=== PATIENT | male | born 1970 | race Caucasian/White ===

== ENCOUNTER 2021-07-24 13:55 | Emergency (ER) | payer SELFPAY ==
[2021-07-24 14:11] VITALS: BP 156/92; PULSE 55; TEMP 99.1; BMI 27.4
[2021-07-24] MEDS ORDERED: ACETAMINOPHEN 1000 MG/100 ML BAG IVPB ONE (15:03)
[2021-07-24] MEDS ORDERED: SODIUM CHLORIDE 1,000 ML IV STA ×2 (15:03→17:45)
[2021-07-24] MEDS ORDERED: METOCLOPRAMIDE HCL INJECTION 10 MG/2 ML VIAL IVPB ONE (15:03)
[2021-07-24] MEDS ORDERED: METOCLOPRAMIDE HCL INJECTION 10 MG/2 ML VIAL ONE (16:23)
[2021-07-24] MEDS ORDERED: ACETAMINOPHEN INJECTION 100 ML IVPB ONE (16:24)
[2021-07-24 16:54] LABS: BASO % 0.3 % (0-2.0); EOS % 0.1 % (0-4.5); HEMATOCRIT 44.6 % (35.4-49); HEMOGLOBIN 14.5 GM/dL (11.7-16.9); LYMPH % 10.8 % (8-40); MCH 27.8 pg (25.7-33.7); MCHC 32.5 g/dl (32.0-35.9); MEAN CELL VOLUME 85.3 fl (80-96); MEAN PLT VOLUME 9.6 fl (7.5-11.1); MONO % 3.3 % (3.8-10.2); NEUT % 85.5 % (42.8-82.8); PLATELET COUNT 230 10^3/uL (134-434); RBC 5.23 M/mm3 (4.00-5.60); RDW 13.8 % (11.9-15.9)
[2021-07-24 17:22] LABS: ALBUMIN 4.1 g/dl (3.4-5.0); BLOOD UREA NITROGEN 15.9 mg/dL (7-18); CALCIUM 9.1 mg/dL (8.5-10.1)
[2021-07-24 17:25] LABS: CREATININE 0.8 mg/dL (0.55-1.3)
[2021-07-24 17:27] LABS: BILIRUBIN,TOTAL 0.4 mg/dL (0.2-1); TOT PROT 7.8 g/dl (6.4-8.2)
== END 2021-07-24 20:31 | disposition home or self-care (01) ==
LOC: JER 13:55
PROC: 3E033GC Introduction of Other Therapeutic Substance into Peripheral Vein, Percutaneous Approach (ICD-10-PCS; principal; 2021-07-24)
DX: K52.9 Noninfective gastroenteritis and colitis, unspecified (principal)
CPT/HCPCS: 36415; 80053; 83690; 85025; 93005; 93010; 99284-25

== ENCOUNTER 2023-05-02 22:20 | Emergency (ER) | payer OTHER ==
[2023-05-02 22:26] VITALS: BMI 25.8
[2023-05-03] MEDS ORDERED: ACETAMINOPHEN 500 MG TABLET (FP) PO ONE (00:37)
[2023-05-03] MEDS ORDERED: ACETAMINOPHEN 325 MG TABLET (FP) ONE (00:40)
[2023-05-03 00:58] VITALS: BP 144/90; PULSE 73; RESP 16; TEMP 98.7
[2023-05-03 00:59] LABS: BASO % 1.1 % (0-2.0); EOS % 2.8 % (0-4.5); HEMATOCRIT 43.2 % (35.4-49); HEMOGLOBIN 14.2 GM/dL (11.7-16.9); LYMPH % 23.9 % (8-40); MCH 28.2 pg (25.7-33.7); MEAN CELL VOLUME 85.6 fl (80-96); MEAN PLT VOLUME 9.1 fl (7.5-11.1); MONO % 8.5 % (3.8-10.2); NEUT % 63.7 % (42.8-82.8); PLATELET COUNT 248 10^3/uL (134-434); RBC 5.04 M/mm3 (4.00-5.60); RDW 13.8 % (11.9-15.9); WHITE BLOOD COUNT 9.6 K/mm3 (4.0-10.0)
[2023-05-03 01:16] LABS: POTASSIUM 4.1 mmol/L (3.5-5.1)
[2023-05-03 01:17] LABS: CALCIUM 9.1 mg/dL (8.5-10.1)
[2023-05-03 01:18] LABS: ALBUMIN 3.6 g/dl (3.4-5.0); BLOOD UREA NITROGEN 15.5 mg/dL (7-18)
[2023-05-03 01:21] LABS: CREATININE 1.4 mg/dL (0.55-1.3)
[2023-05-03 01:23] LABS: BILIRUBIN,TOTAL 0.4 mg/dL (0.2-1); TOT PROT 7.3 g/dl (6.4-8.2)
== END 2023-05-03 01:52 | disposition home or self-care (01) ==
LOC: JER 22:20 → JERFT 22:20 → JER 05-03 01:52
DX: R05.9 Cough, unspecified (principal); R07.89 Other chest pain; K42.9 Umbilical hernia without obstruction or gangrene; Z20.822 Contact with and (suspected) exposure to COVID-19
CPT/HCPCS: 0241U-QW; 36415; 71046-TC-FY; 80053; 84484; 85025; 93005; 93010; 99285-25

== ENCOUNTER 2023-07-17 12:31 | Inpatient (IN) | payer OTHER ==
[2023-07-17 12:42] VITALS: BMI 31.6
[2023-07-17] MEDS ORDERED: morphine SULFATE 4 MG/ML VIAL ONE (14:12)
[2023-07-17] MEDS ORDERED: ONDANSETRON 4 MG/2 ML VIAL ONE (14:12)
[2023-07-17 14:17] LABS: BASO % 1.1 % (0-2.0); EOS % 2.3 % (0-4.5); HEMATOCRIT 42.4 % (35.4-49); HEMOGLOBIN 14.2 GM/dL (11.7-16.9); LYMPH % 22.5 % (8-40); MCH 28.7 pg (25.7-33.7); MCHC 33.5 g/dl (32.0-35.9); MEAN CELL VOLUME 85.9 fl (80-96); MEAN PLT VOLUME 9.2 fl (7.5-11.1); MONO % 6.3 % (3.8-10.2); NEUT % 67.8 % (42.8-82.8); PLATELET COUNT 235 10^3/uL (134-434); RBC 4.94 M/mm3 (4.00-5.60); RDW 14.2 % (11.9-15.9); WHITE BLOOD COUNT 7.8 K/mm3 (4.0-10.0)
[2023-07-17] MEDS: SODIUM CHLORIDE 1,000 ML IV ONE (14:24)
[2023-07-17] MEDS: morphine CARPU-JECT 4 MG/1 ML DISP.SYRIN IVPUSH ONE (14:24)
[2023-07-17 14:25] LABS: INR 1.05 (0.83-1.09); PROTHROMBIN TIME (PATIENT) 12.2 SEC (9.7-13.0)
[2023-07-17] MEDS: ONDANSETRON 4 MG/2 ML VIAL IVPB ONE (14:25)
[2023-07-17 14:38] LABS: POTASSIUM 4.1 mmol/L (3.5-5.1)
[2023-07-17 14:39] LABS: CALCIUM 8.9 mg/dL (8.5-10.1)
[2023-07-17 14:40] LABS: ALBUMIN 3.4 g/dl (3.4-5.0); BLOOD UREA NITROGEN 12.8 mg/dL (7-18)
[2023-07-17 14:43] LABS: CREATININE 0.7 mg/dL (0.55-1.3)
[2023-07-17 14:45] LABS: BILIRUBIN,TOTAL 0.3 mg/dL (0.2-1); TOT PROT 7.2 g/dl (6.4-8.2)
[2023-07-17] MEDS ORDERED: ONDANSETRON 4 MG/2 ML VIAL IVPUSH PRN (16:42)
[2023-07-17] MEDS: DEXTROSE 5%-0.45% SALINE 1,000 ML IV SCH (17:29)
[2023-07-18 10:14] LABS: BASO % 0.7 % (0-2.0); EOS % 2.3 % (0-4.5); HEMATOCRIT 41.9 % (35.4-49); HEMOGLOBIN 14.2 GM/dL (11.7-16.9); LYMPH % 20.4 % (8-40); MCH 28.8 pg (25.7-33.7); MCHC 33.9 g/dl (32.0-35.9); MEAN CELL VOLUME 84.8 fl (80-96); MEAN PLT VOLUME 9.3 fl (7.5-11.1); MONO % 5.9 % (3.8-10.2); NEUT % 70.7 % (42.8-82.8); PLATELET COUNT 241 10^3/uL (134-434); RBC 4.94 M/mm3 (4.00-5.60); RDW 14.2 % (11.9-15.9); WHITE BLOOD COUNT 7.4 K/mm3 (4.0-10.0)
[2023-07-18 10:34] LABS: POTASSIUM 4.2 mmol/L (3.5-5.1)
[2023-07-18 10:36] LABS: CALCIUM 9.1 mg/dL (8.5-10.1)
[2023-07-18 10:37] LABS: ALBUMIN 3.4 g/dl (3.4-5.0)
[2023-07-18 10:40] LABS: CREATININE 0.7 mg/dL (0.55-1.3)
[2023-07-18 10:42] LABS: BILIRUBIN,TOTAL 0.4 mg/dL (0.2-1); TOT PROT 7.1 g/dl (6.4-8.2)
[2023-07-18] MEDS: HEPARIN NA (PORCINE) 5,000 UNITS/ML 1ML VIAL SQ SCH (21:37)
[2023-07-19] MEDS ORDERED: DEXAMETHASONE SOD PHOSPHATE 4 MG/1 ML VIAL ONE (11:24)
[2023-07-19] MEDS ORDERED: LIDOCAINE HCL 2% 100 MG/5 ML DISP.SYRIN ONE (11:24)
[2023-07-19] MEDS ORDERED: PROPOFOL 20 ML ONE ×2 (11:24→11:25)
[2023-07-19] MEDS ORDERED: ROCURONIUM BROMIDE 50 MG/5 ML SYRINGE ONE ×2 (11:24→15:04)
[2023-07-19] MEDS ORDERED: HYDROmorphone HCl 2 MG/ML VIAL ONE (11:24)
[2023-07-19] MEDS ORDERED: ONDANSETRON 4 MG/2 ML VIAL ONE (11:24)
[2023-07-19] MEDS ORDERED: MIDAZOLAM HCL 2 MG/2 ML SINGLE DOSE VIAL ONE (11:25)
[2023-07-19] MEDS ORDERED: SUGAMMADEX SODIUM 200 MG/2 ML VIAL ONE (11:32)
[2023-07-19] MEDS ORDERED: BUPIVACAINE HCL/PF 0.25% (2.5MG/ML) 10 ML VIAL ONE (12:31)
[2023-07-19] MEDS ORDERED: HEPARIN NA (PORCINE) 5,000 UNITS/ML 1ML VIAL ONE (12:32)
[2023-07-19] MEDS ORDERED: ONDANSETRON 4 MG/2 ML VIAL IVPUSH PRN ×3 (13:11→16:44)
[2023-07-19] MEDS ORDERED: LACTATED RINGERS SOLUTION 1,000 ML IV SCH ×2 (13:15→16:44)
[2023-07-19] MEDS: ceFAZolin SODIUM 1 GM VIAL IVPB ONE ×2 (13:58)
[2023-07-19] MEDS: BUPIVACAINE HCL/PF 0.25% (2.5MG/ML) 10 ML VIAL IJ ONE ×2 (14:08)
[2023-07-19] MEDS ORDERED: GLYCOPYRROLATE 0.2 MG/1 ML VIAL ONE (14:14)
[2023-07-19] MEDS ORDERED: KETOROLAC TROMETHAMINE 30 MG/1 ML VIAL ONE (14:15)
[2023-07-19] MEDS ORDERED: NEOSTIGMINE METHYLSULFATE 0.5 MG/1 ML - 10 ML MDV ONE (14:16)
[2023-07-19] MEDS ORDERED: LABETALOL HCL 20 MG/4 ML VIAL ONE (16:20)
[2023-07-19] MEDS: DEXTROSE 5%-0.45% SALINE 1,000 ML IV SCH (18:01)
[2023-07-19] MEDS: ACETAMINOPHEN 325 MG TABLET (FP) PO SCH (18:27)
[2023-07-19] MEDS: HEPARIN NA (PORCINE) 5,000 UNITS/ML 1ML VIAL SQ SCH (21:08)
[2023-07-20] MEDS ORDERED: KETOROLAC TROMETHAMINE 15 MG/ML VIAL IVPUSH PRN
[2023-07-20 08:57] LABS: BASO % 0.2 % (0-2.0); EOS % 0.1 % (0-4.5); HEMATOCRIT 40.2 % (35.4-49); HEMOGLOBIN 13.1 GM/dL (11.7-16.9); LYMPH % 14.4 % (8-40); MCH 27.9 pg (25.7-33.7); MCHC 32.5 g/dl (32.0-35.9); MEAN CELL VOLUME 85.7 fl (80-96); MEAN PLT VOLUME 9.7 fl (7.5-11.1); NEUT % 78.3 % (42.8-82.8); PLATELET COUNT 242 10^3/uL (134-434); RBC 4.69 M/mm3 (4.00-5.60); RDW 14.2 % (11.9-15.9); WHITE BLOOD COUNT 9.9 K/mm3 (4.0-10.0)
[2023-07-20 09:27] LABS: POTASSIUM 4.1 mmol/L (3.5-5.1)
[2023-07-20 09:28] LABS: CALCIUM 8.7 mg/dL (8.5-10.1)
[2023-07-20 09:29] LABS: ALBUMIN 3.2 g/dl (3.4-5.0)
[2023-07-20 09:32] LABS: CREATININE 0.7 mg/dL (0.55-1.3)
[2023-07-20 09:33] LABS: BILIRUBIN,TOTAL 0.4 mg/dL (0.2-1); TOT PROT 6.7 g/dl (6.4-8.2)
[2023-07-20] MEDS: POLYETHYLENE GLYCOL (HEALTHYLAX) 3350 17 GM PACKET PO SCH (14:27)
[2023-07-20] MEDS: oxyCODONE HCL 5 MG TABLET PO PRN (14:27)
[2023-07-21 16:13] VITALS: BP 134/88; PULSE 75; RESP 20; TEMP 97.3
== END 2023-07-21 17:57 | disposition home or self-care (01) | DRG 228 ==
LOC: JER 12:31 → JERBED 15:55 → J7W 18:46
PROVIDERS: ADMIT Internal Medicine; ATTEND Internal Medicine
PROC: 8E0W4CZ Robotic Assisted Procedure of Trunk Region, Percutaneous Endoscopic Approach (ICD-10-PCS; 2023-07-19)
PROC: 0WUF4JZ Supplement Abdominal Wall with Synthetic Substitute, Percutaneous Endoscopic Approach (ICD-10-PCS; principal; 2023-07-19 12:00)
DX: K42.9 Umbilical hernia without obstruction or gangrene (principal)
CPT/HCPCS: 0241U-QW; 36415; 74177-TC; 80053; 83605; 85025; 85610; 85730; 86850; 86900; 86901; 93005; 93010; 94760; 99285-25; C1781; J1644; Q9967